=== PATIENT | male | born 1955 | race Caucasian/White ===

== ENCOUNTER → 2017-10-10 | Outpatient (CLI) | payer BC ==
[~2017-10-10] MED LIST: AMLO10TA2 PO; ASPI-983 PO; ATOR20TA49 PO; CALC0.253 PO; GLIM4TAB PO; INSU100I29 SQ; LISI10TA2 PO; MMT17NA NS; SILD100T PO; SITA100T12 PO
--- NOTE | 2017-10-10 11:23 | Diagnostic Imaging Report ---
CLINICAL INDICATION: Patient fell two days ago. Patient has right temporal contusion with headache, dizziness, some blurred vision. EXAM: Axial CT scan of brain performed without IV contrast. COMPARISON: Head CT without IV contrast dated 04/21/2015. FINDINGS: There is no evidence of acute cerebral infarct, intracranial hemorrhage, or gross mass effect. The brain parenchymal volume appears appropriate for patient's age. There is normal rivera-white matter distinction. There is no significant midline shift or herniation. There is no evidence of hydrocephalus. The basal cisterns are unremarkable. There is very minimal extracranial soft tissue swelling in the right temporal region. Otherwise, the skull, extracranial soft tissue, and orbits are unremarkable. There is moderate mucosal thickening in the right frontal sinus region. Temporal bones show no significant abnormality. IMPRESSION: 1: There is moderate frontal sinus disease. 2: Otherwise, unremarkable CT scan of the brain for age. There is no evidence of intracranial hemorrhage or skull fracture. Results of this report was discussed with Dr. Keyon Hercules via the telephone on 10/10/2017 at 1110 hours. Dictated by: Dictated on workstation # [id number]
== END ==
LOC: RAD 10:35
PROVIDERS: ATTEND Nurse Practitioner Family
DX: S00.83XA Contusion of other part of head, initial encounter (principal); H53.8 Other visual disturbances; J32.1 Chronic frontal sinusitis
CPT/HCPCS: 70450

== ENCOUNTER → 2023-03-09 | Outpatient (CLI) | payer BC, MEDICARE ==
[~2023-03-09] MED LIST changes: +AMLO-251 PO; -AMLO10TA2 PO; +ASPI-1238 PO; -ASPI-983 PO; -GLIM4TAB PO; +GLIM4TAB5 PO; -INSU100I29 SQ; +INSU100I30 SQ; -LISI10TA2 PO; +LISI10TA25 PO; -MMT17NA NS; +MOME17SP4 NS
--- NOTE | 2023-03-09 10:51 | Diagnostic Imaging Report ---
PROCEDURE: US Renal Bilateral. TECHNIQUE: Multiple real-time grayscale images were obtained over the kidneys in various projections bilaterally. INDICATION: Complex cystic renal lesion, we are asked to follow up. I have no priors. FINDINGS: The right kidney is 9.9 cm and contains a small anechoic benign cyst at its upper pole of 1.3 cm otherwise normal. No hydronephrosis. No solid mass. No complex lesion. No stone. The left kidney is 10.7 cm and has a 2.3 cm cyst in its upper pole with a nonvascularized thin incomplete echogenic partial septation which may be partly calcified. A second midpole cyst of 2.1 cm showed no complexity. No solid or vascularized renal lesion. No hydronephrosis. No stone. The urinary bladder normal, bilateral ureteral jets patency normal. IMPRESSION: Unobstructed kidneys, contains small simple cysts bilaterally as well as a left renal upper pole cyst with mild complexity with partial likely calcified thin nonvascularized incomplete internal septation. No solid or vascularized renal lesion. Dictated by: Dictated on workstation # [id number]
== END ==
LOC: RAD 08:05
PROVIDERS: ATTEND Specialist
DX: N28.1 Cyst of kidney, acquired (principal)
CPT/HCPCS: 76770